=== PATIENT | male | born 2000 | race Caucasian/White ===

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

== ENCOUNTER 2018-08-29 17:34 | Inpatient (IN) | payer OTHER ==
[~2018-08-29] VITALS: Ht 195.5 cm; Wt 159.7 kg
--- NOTE | ~2018-08-29 | EKG ---
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
--- NOTE | ~2018-08-29 | EKG ---
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
--- NOTE | ~2018-08-29 | EKG ---
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
--- NOTE | ~2018-08-29 | EKG ---
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
[~2018-08-29 17:34] MED LIST changes: +IBU800 MG PO
[2018-08-29 17:36] VITALS: BP 144/90
[2018-08-29 17:57] LABS: BASO # 0.1 10*3/uL (0.0-0.1); BASO % 0.8 % (0.0-1.0); EOS # 0.1 10*3/uL (0.0-0.4); EOS % 1.4 % (1.0-4.0); HEMATOCRIT 45.8 % (42.0-52.0); HEMOGLOBIN 14.9 g/dl (14.0-18.0); LYMPH # 2.8 10*3/uL (1.3-4.4); MEAN CELL VOLUME 83.4 fl (80.0-94.0); MEAN CORPUSCULAR HGB 27.1 pg (27.0-31.0); MEAN CORPUSCULAR HGB CONC 32.5 g/dl (33.0-37.0); MONO # 1.2 10*3/uL (0.1-1.0); MONO % 11.2 % (3.0-9.0); NEUT # 6.1 10*3/uL (2.3-7.9); NEUT % 59.2 % (47.0-73.0); PLATELET COUNT AUTOMATED 288 10*3/uL (130-400); RED BLOOD COUNT 5.49 10*6/uL (4.50-5.90); RED CELL DISTRI WIDTH 13.6 % (0-14.5); WHITE BLOOD COUNT 10.3 10*3/uL (4.8-10.8)
[2018-08-29 18:12] LABS: ACT PARTIAL THROMBO TIME 23.5 SECONDS (20.8-31.5); INTERNATIONAL NORM RATIO 0.9 (2.0-3.5)
[2018-08-29 18:20] LABS: ALBUMIN 3.4 gm/dl (3.1-4.5); ALKALINE PHOSPHATASE 73 U/L (45-117); BUN 10 mg/dl (7-24); CHLORIDE 106 mmol/L (98-107); CREATININE 0.97 mg/dL (0.70-1.30); POTASSIUM 3.9 mmol/L (3.5-5.1); SGOT/AST 14 IU/L (3-35); SGPT/ALT 23 U/L (12-78); SODIUM 139 mmol/L (136-145); TOTAL PROTEIN 7.2 gm/dL (6.4-8.2)
[2018-08-29 18:21] LABS: TROPONIN I < 0.015 ng/ml (<0.045)
[2018-08-29 19:30] VITALS: BP 132/72
--- NOTE | 2018-08-29 19:30 | NUR ---
A 18, admitted to 5E, under the services of EDWIN Araujo DO with a diagnosis of CHEST PAIN. Chief complaint is EPIGASTRIC PAIN. Patient arrived via ambulatory from ER. Monitor applied. Initial assessment completed. Vital signs taken and recorded. EDWIN ARAUJO DO notified of admission to the unit. Orders received. See assessment for past medical history, medications and allergies. Patient and/or family oriented to unit. [facility] visitation policy reviewed. Clothing/patient valuable form completed. SILVANO KUMAR
[2018-08-29] MEDS ORDERED: PRILOSEC20 M1 PO (19:38)
[2018-08-29] MEDS ORDERED: TUMS300 MG PO (19:39)
--- NOTE | 2018-08-29 19:57 | NUR ---
PATIENT STATES HE TAKES NO MEDICATIONS AT HOME. STATES HE HAS RECENTLY BEEN TAKING PRILOSEC OTC AND TUMS OTC PRN FOR HEARTBURN OVER THE LAST 2 WEEKS. MED REC UP TO DATE AT THIS TIME.
--- NOTE | 2018-08-29 20:15 | NUR ---
URINE CUP PROVIDED AND PATIENT EDUCATED ABOUT NEEDING URINE SAMPLE. VERBALIZES UNDERSTANDING.
--- NOTE | 2018-08-29 20:40 | NUR ---
PAPERWORK SIGNED BY PATIENT TO ALLOW ACCESS TO MEDICAL RECORDS TO MOTHER, EDDI CAMACHO. COPY PLACED ON CHART.
--- NOTE | 2018-08-29 22:53 | NUR ---
PATIENT C/O NASAL CONGESTION. NOTIFIED. NEW ORDER RECEIVED FOR SALINE NASAL SPRAY 1 SPRAY EACH NOTSRIL BID PRN. PHARMACY NOTIFIED OF ORDER.
--- NOTE | 2018-08-29 23:37 | NUR ---
CALLED REGARDING THIRD EKG. STATES SHE WILL REVIEW.
--- NOTE | 2018-08-29 23:52 | NUR ---
HERE TO REVIEW EKG. NEW ORDER RECEIVED TO REPEAT LAST EKG AND CALL WHEN COMPLETE. URINE DRUG SCREEN COLLECTED & SENT.
[2018-08-30] VITALS: BP 119/66
[2018-08-30 00:08] LABS: URINE AMPHETAMINES < 1000 (1000ng/ml); URINE BARBITURATES < 200 (200ng/ml); URINE BENZODIAZEPINES < 200 (200ng/ml); URINE CANNABINOIDS (THC) < 50 (50ng/ml); URINE COCAINE < 300 (300ng/ml); URINE METHADONE < 300 (300ng/ml); URINE OPIATES < 300 (300ng/ml); URINE PHENCYCLIDINE < 25 (25ng/ml)
--- NOTE | 2018-08-30 01:35 | NUR ---
PO RESTORIL ADMINISTERED PER PRN ORDER FOR C/O INSOMNIA. WILL MONITOR EFFECTIVENESS. CALL LIGHT IN REACH.
--- NOTE | 2018-08-30 03:08 | NUR ---
EARLIER RESTORIL HELPED "SOME" PER PATIENT. PATIENT STILL AWAKE, BUT DOES NOT WANT ANY FURTHER MEDICATION TO HELP HIM SLEEP. WILL MONITOR. CALL LIGHT LEFT IN REACH. BED ALARM INTACT.
[2018-08-30 03:45] VITALS: BP 123/67
[2018-08-30 09:30] VITALS: BP 123/67
--- NOTE | 2018-08-30 11:42 | NUR ---
Entry Level Truck Driver in to talk to patient. Patient states lives at HOME with MOTHER. There are NO steps in the home. Physician: AWA RUSSELL Pharmacy: [facility] [place] [facility] services: NONE Patient's level of ADLs: INDEPENDENT Patient has working utilities: YES DME: NONE Follow-up physician's appointment after d/c: WILL BE MADE BY HOSPITALIST NURSE DIRECTOR ON DISCHARGE Does patient want to access PORTAL?: NO Discharge plan PT STATES HE LIVES AT HOME WITH HIS MOTHER AND IS INDEPENDENT IN CARE. DENIES HOME NEEDS AT THIS TIME. WILL CONTINUE TO FOLLOW. PT STATES HE HAS A RIDE HOME ON DISCHARGE.. MARY LOU NINA
[2018-08-30] MEDS ORDERED: OMEPRAZOLE D/R20 MG PO (12:08)
--- NOTE | 2018-08-30 13:38 | NUR ---
Discharge instructions reviewed with patient/family. Patient receptive and verbalizes understanding. Follow-up care arranged. Written instructions given to patient/family. JAISON FORD
--- NOTE | 2018-08-30 13:50 | NUR ---
PATIENT DISCHARGED TO [facility], AMBULATORY, FOR TRANSPORT HOME BY PRIVATE VEHICLE WITH FRIENDS.
== END 2018-08-30 13:38 | disposition home or self-care (01) | DRG 313 ==
LOC: ED 17:34 → EDHOLD 18:47 → 5E 18:59
PROVIDERS: Emergency Medicine; Internal Medicine; ADMIT Emergency Medicine
DX: R07.9 Chest pain, unspecified (principal); E66.01 Morbid (severe) obesity due to excess calories; R10.13 Epigastric pain; G89.29 Other chronic pain; M54.9 Dorsalgia, unspecified; R00.0 Tachycardia, unspecified; R94.31 Abnormal electrocardiogram [ECG] [EKG]; R03.0 Elevated blood-pressure reading, without diagnosis of hypertension; R73.9 Hyperglycemia, unspecified; F32.9 Major depressive disorder, single episode, unspecified; Z87.81 Personal history of (healed) traumatic fracture; Z83.3 Family history of diabetes mellitus; Z82.49 Family history of ischemic heart disease and other diseases of the circulatory system; Z80.9 Family history of malignant neoplasm, unspecified; Z72.0 Tobacco use; Z71.6 Tobacco abuse counseling

== ENCOUNTER 2019-07-28 18:21 | Emergency (ER) | payer OTHER ==
[~2019-07-28] VITALS: Ht 195.5 cm; Wt 158.8 kg
[~2019-07-28 18:21] MED LIST changes: +OMEPRAZOLE D/R20 MG PO; +PRILOSEC20 M1 PO; +TUMS300 MG PO
[2019-07-28] MEDS ORDERED: NORCO 10-325 T1 EACH PO (18:47)
[2019-07-28] MEDS ORDERED: KEFLEX500 M1 PO (18:47)
== END 2019-07-28 18:47 | disposition home or self-care (01) ==
LOC: ED 18:21
DX: L60.0 Ingrowing nail (principal); E66.01 Morbid (severe) obesity due to excess calories; F17.220 Nicotine dependence, chewing tobacco, uncomplicated; Z68.41 Body mass index [BMI] 40.0-44.9, adult

== ENCOUNTER → 2020-01-27 | Outpatient (CLI) | payer OTHER ==
[~2020-01-27] MED LIST changes: +KEFLEX500 M1 PO; +NORCO 10-325 T1 EACH PO
[2020-01-27 10:59] LABS: BILIRUBIN NEGATIVE (NEGATIVE); BLOOD 1+ (NEGATIVE); CLARITY SL CLOUDY (CLEAR); COLOR YELLOW (YELLOW); GLUCOSE NEGATIVE (NEGATIVE); KETONE NEGATIVE (NEGATIVE); LEUKO ESTERASE TRACE (NEGATIVE); NITRITE NEGATIVE (NEGATIVE); PH 8.5 (5.0-9.0); SPECIFIC GRAVITY 1.005 (1.005-1.030); UROBILINOGEN 0.2 E.U./dl (0.2-1.0); WBC 31-40 wbc/hpf (0-5)
[2020-01-27 11:19] LABS: ALBUMIN 3.4 gm/dl (3.1-4.5); ALKALINE PHOSPHATASE 70 U/L (45-117); BUN 10 mg/dl (7-24); CHLORIDE 109 mmol/L (98-107); CHOLESTEROL 161 mg/dL (<200); CREATININE 0.81 mg/dL (0.70-1.30); HDL CHOLESTEROL 38 mg/dl (40-60); LDL CHOLESTEROL 111 mg/dL (9-159); POTASSIUM 3.9 mmol/L (3.5-5.1); SGOT/AST 13 IU/L (3-35); SGPT/ALT 30 U/L (12-78); SODIUM 139 mmol/L (136-145); TOTAL PROTEIN 7.2 gm/dL (6.4-8.2); TRIGLYCERIDES 62 mg/dl (<150); VLDL CHOLESTEROL 12 mg/dL (6-40)
== END | disposition home or self-care (01) ==
LOC: LAB 10:07
PROVIDERS: Family Medicine
DX: R30.0 Dysuria (principal); E66.9 Obesity, unspecified

== ENCOUNTER 2020-01-30 13:08 | Emergency (ER) | payer OTHER ==
[~2020-01-30] VITALS: Ht 195.5 cm; Wt 158.8 kg
[2020-01-30 13:37] LABS: BILIRUBIN NEGATIVE (NEGATIVE); BLOOD 3+ (NEGATIVE); CLARITY CLOUDY (CLEAR); COLOR YELLOW (YELLOW); GLUCOSE NEGATIVE (NEGATIVE); KETONE NEGATIVE (NEGATIVE); LEUKO ESTERASE 1+ (NEGATIVE); NITRITE NEGATIVE (NEGATIVE); UROBILINOGEN 0.2 E.U./dl (0.2-1.0)
[2020-01-30 13:46] LABS: RBC 41-50 rbc/hpf (0-2); WBC 16-20 wbc/hpf (0-5)
[2020-01-30 13:47] LABS: BACTERIA 1+; MUCOUS 1+
[2020-01-30 14:19] LABS: BASO # 0.1 10*3/uL (0.0-0.1); BASO % 0.7 % (0.0-1.0); EOS # 0.1 10*3/uL (0.0-0.4); HEMATOCRIT 41.8 % (42.0-52.0); LYMPH # 2.9 10*3/uL (1.3-4.4); LYMPH % 23.8 % (27.0-41.0); MEAN CELL VOLUME 83.6 fl (80.0-94.0); MEAN CORPUSCULAR HGB CONC 32.3 g/dl (33.0-37.0); MEAN PLATELET VOLUME 9.6 fl (9.6-12.3); MONO # 1.3 10*3/uL (0.1-1.0); MONO % 10.5 % (3.0-9.0); NEUT # 7.7 10*3/uL (2.3-7.9); NEUT % 63.7 % (47.0-73.0); PLATELET COUNT AUTOMATED 287 10*3/uL (130-400); RED CELL DISTRI WIDTH 13.2 % (0-14.5); WHITE BLOOD COUNT 12.1 10*3/uL (4.8-10.8)
[2020-01-30 14:34] LABS: ALBUMIN 3.6 gm/dl (3.1-4.5); ALKALINE PHOSPHATASE 69 U/L (45-117); BUN 10 mg/dl (7-24); CHLORIDE 107 mmol/L (98-107); CREATININE 0.93 mg/dL (0.70-1.30); SGOT/AST 17 IU/L (3-35); SGPT/ALT 31 U/L (12-78); SODIUM 138 mmol/L (136-145); TOTAL PROTEIN 7.2 gm/dL (6.4-8.2)
[2020-01-30] MEDS ORDERED: SEPTDS PO (15:29)
[2020-01-30] MEDS ORDERED: KETOROLAC10 MG PO (15:29)
[2020-01-30] MEDS ORDERED: FLOMAX0.4 MG PO (15:29)
== END 2020-01-30 15:33 | disposition home or self-care (01) ==
LOC: ED 13:08
PROVIDERS: Physician Assistant
DX: R31.9 Hematuria, unspecified (principal); Z79.899 Other long term (current) drug therapy

== ENCOUNTER → 2021-09-29 | Outpatient (CLI) | payer OTHER ==
[~2021-09-29] MED LIST changes: +FLOMAX0.4 MG PO; +KETOROLAC10 MG PO; +SEPTDS PO
== END | disposition home or self-care (01) ==
LOC: RAD 15:15
PROVIDERS: ATTEND Family Medicine
DX: M25.572 Pain in left ankle and joints of left foot (principal)

== ENCOUNTER 2024-01-10 17:42 | Emergency (ER) | payer OTHER ==
[~2024-01-10] VITALS: Ht 195.5 cm; Wt 149.7 kg
[2024-01-10] MEDS ORDERED: Ketorolac Tromethamine 30 MG/ML VIAL IM ONE (18:25)
== END 2024-01-10 20:21 | disposition home or self-care (01) ==
LOC: ED 17:42
DX: S20.212A Contusion of left front wall of thorax, initial encounter (principal); F17.220 Nicotine dependence, chewing tobacco, uncomplicated; Z98.890 Other specified postprocedural states; V29.99XA Rider (driver) (passenger) of other motorcycle injured in unspecified traffic accident, initial encounter; Y93.55 Activity, bike riding; Y92.410 Unspecified street and highway as the place of occurrence of the external cause; Y99.8 Other external cause status